=== PATIENT | male | born 1985 | race African-American/Black ===

== ENCOUNTER 2018-07-24 08:04 | Emergency (ER) | payer BC ==
[2018-07-24] MEDS ORDERED: ASPIRIN 81 MG TABLET, CHEWABLE PO ONE (08:29)
[2018-07-24 08:42] LABS: ABSOLUTE BASOPHILS # (AUTO) 0.1 10^3/uL (0.0-0.2); ABSOLUTE EOSINOPHILS # (AUTO) 0.1 10^3/uL (0.0-0.6); ABSOLUTE LYMPHOCYTES (AUTO) 2.3 10^3/uL (0.5-4.7); ABSOLUTE MONOCYTES (AUTO) 0.5 10^3/uL (0.1-1.4); BASOPHILS % (AUTO) 0.7 % (0-2); EOSINOPHILS % (AUTO) 1.7 % (0-6); HEMATOCRIT 44.1 % (37.9-51.0); HEMOGLOBIN 14.6 g/dL (13.5-17.0); MEAN CORPUSCULAR HEMOGLOBIN 28.1 pg (27.0-33.4); MEAN CORPUSCULAR HGB CONC 33.1 g/dL (32.0-36.0); MEAN CORPUSCULAR VOLUME 85 fl (80-97); MONOCYTES % (AUTO) 5.8 % (3-13); PLATELET COUNT 205 10^3/uL (150-450); RED BLOOD COUNT 5.19 10^6/uL (4.35-5.55); RED CELL DISTRIBUTION WIDTH 13.2 % (11.5-14.0); SEGMENTED NEUTROPHILS % (AUTO) 62.8 % (42-78); TOTAL CELLS COUNTED % (AUTO) 100 %
[2018-07-24 08:59] LABS: ALANINE AMINOTRANSFERASE 37 U/L (21-72); ALBUMIN 4.4 g/dL (3.5-5.0); ALKALINE PHOSPHATASE 42 U/L (38-126); ANION GAP 11 (5-19); ASPARTATE AMINO TRANSFERASE 52 U/L (17-59); BILIRUBIN,DIRECT 0.3 mg/dL (0.0-0.4); BILIRUBIN,TOTAL 0.3 mg/dL (0.2-1.3); BLOOD UREA NITROGEN 18 mg/dL (7-20); CALCIUM 9.1 mg/dL (8.4-10.2); CARBON DIOXIDE 29 mmol/L (22-30); CHLORIDE 106 mmol/L (98-107); CREATINE KINASE 1178 U/L (55-170); GLUCOSE 106 mg/dL (75-110); POTASSIUM 4.1 mmol/L (3.6-5.0); SODIUM 146.2 mmol/L (137-145); TOTAL PROTEIN 7.7 g/dL (6.3-8.2)
--- NOTE | 2018-07-24 09:03 | RADIOLOGY REPORT (SQ) ---
EXAM DESCRIPTION: CHEST 2 VIEWS COMPLETED DATE/TIME: 07/24/2018 8:52 am REASON FOR STUDY: pain in chest COMPARISON: None. TECHNIQUE: Frontal and lateral radiographic views of the chest acquired. NUMBER OF VIEWS: Two view. LIMITATIONS: None. FINDINGS: LUNGS AND PLEURA: No opacities, masses or pneumothorax. No pleural effusion. MEDIASTINUM AND HILAR STRUCTURES: No masses or contour abnormalities. HEART AND VASCULAR STRUCTURES: Heart normal size. No evidence for failure. BONES: No acute findings. HARDWARE: None in the chest. OTHER: No other significant finding. IMPRESSION: NO SIGNIFICANT RADIOGRAPHIC FINDING IN THE CHEST. TECHNICAL DOCUMENTATION: JOB ID: [id number] [employer]- All Rights Reserved Reading location - IP/workstation name: [email or web address]
[2018-07-24 09:11] LABS: CREATINE KINASE MB 8.43 ng/mL (<4.55); TROPONIN I < 0.012 ng/mL
--- NOTE | 2018-07-24 09:19 | ER Document Report ---
ED Cardiac - General Chief Complaint: Chest Pain Stated Complaint: CHEST NUMBNESS/POSSIBLE ANXIETY Time Seen by Provider: 07/24/18 08:13 Mode of Arrival: Ambulatory Information source: Patient TRAVEL OUTSIDE OF THE [place] IN LAST 30 DAYS: No - HPI Patient complains to provider of: Other - This 32-year-old man presents for evaluation of his bizarre sensation in the left side of his chest which she has had many times in the past, he noted that his seatbelt seemed to feel a bit heavier than usual and is trying to adjust it but kept feeling some discomfort there. 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 He denies any history of heart attacks in the past, any history of hyperlipidemia or family history of heart attacks, he does endorse that he does have a history of high blood pressure for which she has been untreated recently. Denies any diaphoresis emesis or pain in the right side of the chest. - Related Data Allergies/Adverse Reactions: No Known Allergies Allergy (Unverified 07/24/18 08:19) Past Medical History - General Information source: Patient - Social History Smoking Status: Current Every Day Smoker Chew tobacco use (# tins/day): No Frequency of alcohol use: Occasional Drug Abuse: None Family History: None Patient has suicidal ideation: No Patient has homicidal ideation: No - Past Medical History Cardiac Medical History: Reports: Hx Hypertension Renal/ Medical History: Denies: Hx Peritoneal Dialysis Past Surgical History: Reports: Hx Orthopedic Surgery - right ankle Review of Systems - Review of Systems -: Yes All other systems reviewed and negative Physical Exam - Vital signs Vitals: Resp Pulse Ox 11 L 100 07/24/18 08:07 07/24/18 08:07 - General General appearance: Appears well In distress: None - HEENT Head: Normocephalic Eyes: Normal Conjunctiva: Normal Cornea: Normal Extraocular movements intact: Yes Eyelashes: Normal Pupils: PERRL - Respiratory Respiratory status: No respiratory distress Chest status: Nontender Breath sounds: Normal Chest palpation: Normal - Cardiovascular Rhythm: Regular Heart sounds: Normal auscultation Murmur: No - Abdominal Inspection: Normal Distension: No distension Tenderness: Nontender - Back Back: Normal - Extremities General upper extremity: Normal inspection, Normal ROM General lower extremity: Normal inspection, Normal ROM - Neurological Neuro grossly intact: Yes Cognition: Normal Orientation: AAOx4 Sonya Coma Scale Eye Opening: Spontaneous [place] Coma Scale Verbal: Oriented Sonya Coma Scale Motor: Obeys Commands Sonya Coma Scale Total: 15 - Psychological Associated symptoms: Normal affect Course - Re-evaluation Re-evalutation: 07/24/18 09:18 This 32-year-old man who presents for evaluation of atypical chest pain, he has been evaluated in the past only once for this, he has never had any history of heart attacks in the past. His heart score is 0 for age, 0 for story, one for risk factors, 0 for EKG, his troponin is pending. Plan for 2 troponins cardiac monitoring emergency department reassessment is necessary and probable follow-up. Have given aspirin for potential ACS this seems unlikely at this time, patient may have atypical chest pain unknown etiology, will obtain chest x-ray for possible underlying bony or pulmonary cause as well. 07/24/18 17:16 2 negative troponins were obtained for this patient after which she was deemed appropriate for discharge she was kept on monitor in the emergency department without any other events. Ambulatory at the time of discharge without any other symptoms, at the time of discharge she was also chest pain-free. - Vital Signs Vital signs: Temp Pulse Resp BP Pulse Ox 98.2 F 82 16 130/98 H 99 07/24/18 13:22 07/24/18 08:19 07/24/18 13:01 07/24/18 13:01 07/24/18 13:01 - Laboratory Result Diagrams: 07/24/18 08:15 07/24/18 08:15 Laboratory results interpreted by me: 07/24/18 07/24/18 08:15 08:15 Sodium 146.2 H Creatine Kinase 1178 H CK-MB (CK-2) 8.43 H Discharge - Discharge Clinical Impression: Chest pain Qualifiers: Chest pain type: unspecified Qualified Code(s): R07.9 - Chest pain, unspecified Disposition: HOME, SELF-CARE Instructions: Chest Wall Pain ([facility]) Forms: Elevated Blood Pressure, Smoking Cessation Education
--- NOTE | 2018-07-24 09:42 | EKG REPORT ---
SEVERITY:- ABNORMAL ECG - SINUS RHYTHM CONSIDER LEFT VENTRICULAR HYPERTROPHY : Confirmed by: Patrick Carson MD 24-Jul-2018 09:41:58
[2018-07-24 13:17] VITALS: BP 130/98
== END 2018-07-24 13:22 | disposition home or self-care (01) ==
LOC: EDBD → ER 08:04
DX: R07.89 Other chest pain (principal); I10 Essential (primary) hypertension; F17.200 Nicotine dependence, unspecified, uncomplicated
CPT/HCPCS: 36415; 71046; 80053; 82550; 82553; 84484; 85025; 93005; 93010; 99285

== ENCOUNTER 2018-08-16 16:40 | Emergency (ER) | payer BC ==
[2018-08-16 16:47] VITALS: BP 161/88
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
== END 2018-08-16 18:30 | disposition home or self-care (01) ==
LOC: ER 16:40 → EEVIPCON 16:40 → ER 18:30
DX: F41.9 Anxiety disorder, unspecified (principal); F32.9 Major depressive disorder, single episode, unspecified; I10 Essential (primary) hypertension
CPT/HCPCS: 99283

== ENCOUNTER 2019-01-16 15:23 | Emergency (ER) | payer BC, OTHER ==
[2019-01-16 15:33] VITALS: BP 185/110
--- NOTE | 2019-01-16 16:45 | RADIOLOGY REPORT (SQ) ---
EXAM DESCRIPTION: ELBOW LEFT OVER 2 VIEWS COMPLETED DATE/TIME: 01/16/2019 4:24 pm REASON FOR STUDY: Pain in L arm after lifting COMPARISON: None. NUMBER OF VIEWS: Four views. TECHNIQUE: AP, lateral, and both oblique radiographic images acquired of the left elbow. LIMITATIONS: None. FINDINGS: MINERALIZATION: Normal. BONES: No acute fracture or dislocation. No worrisome bone lesions. JOINT: No effusion. SOFT TISSUES: Increased soft tissue density anterior distal upper arm. No foreign body. OTHER: No other significant finding. IMPRESSION: Probable distal biceps tendon rupture. TECHNICAL DOCUMENTATION: JOB ID: [id number] [facility]- All Rights Reserved Reading location - IP/workstation name: [email or web address]
--- NOTE | 2019-01-16 17:41 | ER Document Report ---
ED Extremity Problem, Upper - General Chief Complaint: Arm Injury Stated Complaint: ARM PAIN Time Seen by Provider: 01/16/19 17:20 Primary Care Provider: MOISES KENT MD [ACTIVE STAFF] - Follow up tomorrow (Follow-up with orthopedics tomorrow morning at 8:00 in the morning) Mode of Arrival: Ambulatory Information source: Patient Notes: 33-year-old male presented to ED for complaint of sudden pain to his left forearm after he was helping to guide a palate that was heavy. He states at the time that he was help with the guided he felt multiple pops in his antecubital area and then his lower arm became very tight. He states he is used ice with no relief of the pain. He states it hurts to move the wrist hand or arm at all. He has had an x-ray completed before I examined him which shows probable distal biceps tendon rupture. TRAVEL OUTSIDE OF THE [place] IN LAST 30 DAYS: No - HPI Patient complains to provider of: Injury, Left - forearm and aticubital area. states burning Onset: This afternoon Recent injury: Yes Where: Work Quality of pain: Burning, Sharp, Stabbing Severity of pain: Severe Pain Level: 5 Context: Other - Lifting Exacerbated by: Movement, Exertion Relieved by: Rest, Positioning Similar symptoms previously: No Recently seen / treated by doctor: No - Related Data Allergies/Adverse Reactions: No Known Allergies Allergy (Verified 08/16/18 16:41) Past Medical History - General Information source: Patient - Social History Smoking Status: Never Smoker - Vapor cigarette Frequency of alcohol use: Social Drug Abuse: Marijuana Occupation: Machine shop Lives with: Alone Family History: None Patient has suicidal ideation: No Patient has homicidal ideation: No - Past Medical History Cardiac Medical History: Reports: Hx Hypertension Pulmonary Medical History: Reports: None EENT Medical History: Reports: None Neurological Medical History: Reports: None Endocrine Medical History: Reports: None Renal/ Medical History: Reports: None Malignancy Medical History: Reports None Musculoskeletal Medical History: Reports Hx Musculoskeletal Trauma Skin Medical History: Reports Hx Cellulitis Psychiatric Medical History: Reports: None Traumatic Medical History: Reports: Hx Fractures - Right ankle Infectious Medical History: Reports: None Past Surgical History: Reports: Hx Orthopedic Surgery - right ankle, Other - Surgery to the axilla for multiple abscesses Review of Systems - Review of Systems Constitutional: No symptoms reported EENT: No symptoms reported Cardiovascular: No symptoms reported Respiratory: No symptoms reported Gastrointestinal: No symptoms reported Genitourinary: No symptoms reported Male Genitourinary: No symptoms reported Musculoskeletal: Other - While lifting a heavy object he felt multiple pops in his antecubital space then his lower arm had severe pain with swelling to the distal bicep insertion site no pain to the upper arm Skin: No symptoms reported Hematologic/Lymphatic: No symptoms reported Neurological/Psychological: No symptoms reported -: Yes All other systems reviewed and negative Physical Exam - Vital signs Vitals: Temp Pulse Resp BP Pulse Ox 99.9 F 87 16 185/110 H 97 01/16/19 15:32 01/16/19 15:32 01/16/19 15:32 01/16/19 15:32 01/16/19 15:32 Interpretation: Normal - General General appearance: Appears well, Alert - HEENT Head: Normocephalic, Atraumatic Eyes: Normal Pupils: PERRL - Respiratory Respiratory status: No respiratory distress Chest status: Nontender Breath sounds: Normal Chest palpation: Normal - Cardiovascular Rhythm: Regular Heart sounds: Normal auscultation Murmur: No - Abdominal Inspection: Normal Distension: No distension Bowel sounds: Normal Tenderness: Nontender Organomegaly: No organomegaly - Back Back: Normal, Nontender - Extremities General upper extremity: Normal inspection, Nontender, Normal color, Normal ROM, Normal temperature General lower extremity: Normal inspection, Nontender, Normal color, Normal ROM, Normal temperature, Normal weight bearing. No: Dariela's sign Elbow: Tender, Limited ROM - Left Forearm: Tender - due to pain left, Other - Swelling to the left distal biceps tendon insertion site Wrist: Tender, Limited ROM - 2 pain Hand: Tender, No evidence of human bite, No evidence of FB. No: Swelling - Neurological Neuro grossly intact: Yes Cognition: Normal Orientation: AAOx4 Sonya Coma Scale Eye Opening: Spontaneous Sonya Coma Scale Verbal: Oriented Sonya Coma Scale Motor: Obeys Commands [place] Coma Scale Total: 15 Speech: Normal Motor strength normal: LUE, RUE, LLE, RLE Sensory: Normal - Psychological Associated symptoms: Normal affect, Normal mood - Skin Skin Temperature: Warm Skin Moisture: Dry Skin Color: Normal Course - Re-evaluation Re-evalutation: 01/16/19 23:22 Dr. Kent was called at the time of the results of the x-ray that showed a probable distal biceps tendon rupture. I explained to him that the patient's pain was all in the lower arm and antecubital space. He stated to put the patient in a shoulder immobilizer and have him see him in the office at 8:00 in the morning. I had Dr. Miranda look at the arm. She recommended putting a Constantine wrap from the lower arm past the elbow up to the upper arm and then put a minimal shoulder immobilizer given pain medicine and have him follow-up in the morning. - Vital Signs Vital signs: Temp Pulse Resp BP Pulse Ox 99.9 F 87 16 185/110 H 97 01/16/19 15:32 01/16/19 15:32 01/16/19 15:32 01/16/19 15:32 01/16/19 15:32 - Diagnostic Test Radiology reviewed: Image reviewed, Reports reviewed Procedures - Immobilization Left Arm Time completed: 17:45 Immobilizer type: Constantine wrap, Shoulder immobilizer Performed by: PCT Post-Proc Neuro Vasc Exam: Normal Alignment checked and good: Yes Discharge - Discharge Clinical Impression: Rupture of distal biceps tendon Qualifiers: Encounter type: initial encounter Laterality: left Qualified Code(s): S46.212A - Strain of muscle, fascia and tendon of other parts of biceps, left arm, initial encounter Condition: Stable Disposition: HOME, SELF-CARE Additional Instructions: You were seen today for severe pain to your left arm after trying to lift heavy weight. You state you felt multiple pops in the antecubital space. X-ray shows probable distal biceps tendon rupture. You have been placed in a shoulder immobilizer in the emergency room please do not remove this shoulder immobilizer before following up with orthopedics Constantine Wrap A compression dressing (constantine wrap) has been placed. This helps hold the area still. It limits swelling and internal bleeding. The wrap should be comfortably snug -- not tight. You should feel a sense of pressure, but not severe pain under the wrap. Unless the physician tells you otherwise, you can adjust the wrap for comfort. If the wrap causes symptoms suggesting it's too tight -- uncomfortable pressure, swelling or discoloration beyond the wrap, numbness, or severe pain -- you must loosen the wrap. If these symptoms don't resolve promptly, return for re-evaluation. Oral Narcotic Medication You have been given a prescription for pain control. This medication is a narcotic. It's best taken with food, as nausea can result if taken on an empty stomach. Don't operate machinery or drive within six hours of taking this medica tion. Do not combine this medicine with alcohol, or with any medication which can cause sedation (such as cold tablets or sleeping pills) unless you get permission from the physician. Narcotics tend to cause constipation. If possible, drink plenty of fluids and eat a diet high in fiber and fruits. Ice Packs Apply ice packs frequently against the painful area. Many different schedules are recommended, such as "20 minutes on, 20 minutes off" or "one hour ice, two hours rest." If you need to work, you may need to go longer between ice treatments. You should plan to have the area ice packed AT LEAST one fourth of the time. The ice should be applied over the wrap, tape, or splint, or over a layer of cloth -- not directly against the skin. Some ice bags have a built-in cloth and can be put directly on the skin. FOLLOW-UP CARE: If you have been referred to a physician for follow-up care, call the physicians office for an appointment as you were instructed or within the next two days. If you experience worsening or a significant change in your symptoms, notify the physician immediately or return to the Emergency Department at any time for re-evaluation. Prescriptions: Oxycodone HCl/Acetaminophen [Percocet 5-325 mg Tablet] 1 tab PO Q6HP PRN #15 tablet PRN Reason: Forms: Elevated Blood Pressure, Special Work Note Referrals: MOISES KENT MD [ACTIVE STAFF] - Follow up tomorrow (Follow-up with orthopedics tomorrow morning at 8:00 in the morning)
== END 2019-01-16 18:00 | disposition home or self-care (01) ==
LOC: ER 15:23
DX: S46.212A Strain of muscle, fascia and tendon of other parts of biceps, left arm, initial encounter (principal); X50.0XXA Overexertion from strenuous movement or load, initial encounter; Y99.0 Civilian activity done for income or pay
CPT/HCPCS: 99283; 73080; L3650